=== PATIENT | female | born 1950 | race Two or more races ===

== ENCOUNTER 2025-03-29 12:36 | Emergency (ER) | payer OTHER ==
[~2025-03-29] VITALS: Ht 149.9 cm; Wt 62.6 kg
[2025-03-29 13:48] VITALS: BP 154/85; O2SAT 99
[2025-03-29] MEDS ORDERED: DULOXETINE HCL40 MG PO (13:55)
[2025-03-29] MEDS ORDERED: HYDROCHLOROTHIA25 MG PO (13:56)
[2025-03-29] MEDS ORDERED: HORIZANT300 MG PO (13:56)
[2025-03-29] MEDS ORDERED: ZETIA10 MG PO (13:56)
[2025-03-29] MEDS ORDERED: ADULT LOW DOSE81 M1 PO (13:56)
[2025-03-29] MEDS ORDERED: NORFLEX100MG PO (14:23)
[2025-03-29] MEDS ORDERED: ORPHENADRINE CITRATE 30 MG/ML AMPUL IM ONE (14:30)
[2025-03-29] MEDS ORDERED: DEXAMETHASONE SODIUM PHOSPHATE 4 MG/ML VIAL IM ONE (14:30)
[2025-03-29] MEDS ORDERED: ORPHENADRINE CITRATE 30 MG/ML AMPUL ONE (17:40)
[2025-03-29] MEDS ORDERED: DEXAMETHASONE SODIUM PHOSPHATE 4 MG/ML VIAL ONE (17:41)
== END 2025-03-29 17:53 | disposition home or self-care (01) ==
LOC: ER 12:37
DX: M54.59 Other low back pain (principal); M54.16 Radiculopathy, lumbar region; M54.10 Radiculopathy, site unspecified; Z88.8 Allergy status to other drugs, medicaments and biological substances
CPT/HCPCS: 96372; 99282; J1100; J2360

== ENCOUNTER 2025-03-30 13:13 | Outpatient (CLI) | payer OTHER ==
[~2025-03-30 13:13] MED LIST: ADULT LOW DOSE81 M1 PO; DULOXETINE HCL40 MG PO; HORIZANT300 MG PO; HYDROCHLOROTHIA25 MG PO; NORFLEX100MG PO; ZETIA10 MG PO
== END 2025-03-30 13:17 | disposition home or self-care (01) ==
LOC: MRI 13:13
PROVIDERS: ATTEND Internal Medicine Cardiovascular Disease
DX: M46.47 Discitis, unspecified, lumbosacral region (principal)
CPT/HCPCS: 72148